=== PATIENT | male | born 2000 | race Caucasian/White ===

== ENCOUNTER 2024-08-26 21:58 | Emergency (ER) | payer OTHER, SELFPAY ==
[2024-08-26 22:11] VITALS: BP 153/75; PULSE 78; RESP 17; TEMP 36.2; O2SAT 98; BMI 33.9
--- NOTE | 2024-08-26 23:50 | ED.UPPEXIN ---
HPI - Extremity Injury (Upper) General Chief Complaint: Extremity Injury, Upper Stated Complaint: Lt Knee pain, Lt wrist pain x1day Time Seen by Provider: 08/26/24 22:10 Source: patient Mode of arrival: Ambulatory History of Present Illness HPI narrative: 23-year-old gentleman in the [place] was moving a zan yesterday when he was hit in the left wrist and left knee and despite being in a knee brace and taking ibuprofen he is still in pain but able to move his wrist in all directions and able to walk. Patient denies numbness, tingling, down the arms, legs, fingertips, chest pain, shortness of breath. Other than what is stated 14 point review of system is negative. Related Data Previous Rx's ?Medication ?Instructions ?Recorded ketorolac 10 mg tablet 10 mg PO Q6H #20 tabs 08/26/24 Allergies Allergy/AdvReac Type Severity Reaction Status Date / Time No Known Drug Allergies Allergy Verified 08/26/24 22:14 Review of Systems Review of Systems ROS Unobtainable: All systems reviewed & are unremarkable except as noted in HPI and below Patient History Smoking Status: Former smoker Exam Narrative Exam Narrative: GENERAL: [23] year old patient appears stated age. Well-developed patient, in mild distress. HEAD: Atraumatic. Normocephalic. EYES: Pupils equal round and reactive. Extraocular motions intact. No scleral icterus. No injection or drainage. EXTREMITIES: No edema. Left dorsum wrist tender to palpate with pain on flexion and hyperextension. Left knee varus valgus anterior posterior drawer Otilio and Pilar intact, motor sensory intact +2 DP +2 PT cap refill less than 2 seconds BACK: Nontender without deformity or crepitance. No flank tenderness. NEURO: AOx3. SKIN: No rash or erythema of visible areas Initial Vital Signs Initial Vital Signs: Vital Signs Temperature 97.2 F L 08/26/24 22:11 Pulse Rate 78 08/26/24 22:11 Respiratory Rate 17 08/26/24 22:11 Blood Pressure 153/75 H 08/26/24 22:11 Pulse Oximetry 98 08/26/24 22:11 Oxygen Delivery Method Room Air 08/26/24 22:11 Course Orders Ordered: Hydrocodone Bitart/Acetaminophen (Hydrocodone/Acet 5/325 Tablet) 1 tab PO NOW ONE Stop: 08/26/24 23:50 Ibuprofen (Ibuprofen 400 Mg Tablet) 800 mg PO NOW ONE Stop: 08/26/24 23:50 Vital Signs Vital signs: Vital Signs - 8 hr 08/26/24 22:11 Temperature 97.2 F L Pulse Rate 78 Respiratory Rate 17 Blood Pressure 153/75 H Pulse Oximetry 98 Oxygen Delivery Method Room Air MDM - Extremity Injury (Upper) MDM Narrative Medical decision making narrative: Vital signs,nurse triage note, medication list, previous ER visits, and all imaging studies reviewed. Patient placed in velcro wrist splint, and given [place] and ibuprofen here. Patient will be discharged on ketorolac prescription. Differential diagnosis include fracture dislocation sprain strain ligament tendon injury. Patient will be moving back to [place] on Thursday. Discharge Plan Departure Patient Disposition: Home Clinical Impression: Sprain and strain of wrist, Acute knee pain Instructions: DI for Wrist Sprain Activity Restrictions/Additional Instructions: Return with new or worsening symptoms. Take medicines as directed. Follow up with PCP in [place] if no improvement in symptoms next week. Prescriptions: New ketorolac 10 mg tablet 10 mg PO Q6H Qty: 20 0RF Rx Instructions: maximum total duration of 5 days from all oral, intranasal, or parenteral formulations Stand Alone Forms: Patient Portal/API
[2024-08-26] MEDS: HYDROCODONE/ACET 5/325 TABLET 1 TAB PO (23:53)
[2024-08-26] MEDS: IBUPROFEN 400 MG TABLET 800 MG PO (23:53)
[2024-08-27 00:02] VITALS: BP 138/80; PULSE 71; RESP 18; O2SAT 97
== END 2024-08-27 00:04 | disposition home or self-care (01) ==
PROVIDERS: Emergency Provider Family Medicine
DX: S66.912A Strain of unspecified muscle, fascia and tendon at wrist and hand level, left hand, initial encounter (principal); S63.502A Unspecified sprain of left wrist, initial encounter; M25.562 Pain in left knee; W22.8XXA Striking against or struck by other objects, initial encounter; Y93.89 Activity, other specified
CPT/HCPCS: 29125; 99283